=== PATIENT | male | born 2000 | race Caucasian/White ===

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

== ENCOUNTER 2022-03-12 23:52 | Emergency (ER) | payer BC, OTHER ==
--- NOTE | 2022-03-13 | ED Cough/URI ---
General Stated Complaint: CHEST PAIN/TROUBLE BREATHING Source: patient Exam Limitations: no limitations History of Present Illness Date Seen by Provider: March 12, 2022 Time Seen by Provider: 23:57 Initial Comments 21-year-old male with no pertinent past medical history coming in due to 2 days of nonproductive cough, shortness of breath, chest pain. Denies any fever, nausea, vomiting, diarrhea, weakness, numbness, rash, headache, dysuria, or any other concerns. No one around him has been sick that he knows of. Denies any cardiac or pulmonary history personally. Does not smoke. Denies any mopped assist, recent surgery, leg swelling or pain, long travel, or hormone use. Allergies and Home Medications Allergies Coded Allergies: No Known Drug Allergies (Unverified , 09/30/19) Patient Home Medication List Home Medication List Reviewed: Yes Doxycycline Hyclate (Doxycycline Hyclate) 100 Mg Tablet, 100 MG PO BID Prescribed by: ALANA CRAFT on 03/13/22 0110 Ibuprofen (Ibuprofen) 800 Mg Tablet, 800 MG PO Q8H PRN for PAIN Prescribed by: NATTY ASHLEY on 09/30/19 2241 Review of Systems Review of Systems Constitutional: No fever EENTM: No blurred vision Respiratory: cough, short of breath Cardiovascular: chest pain Gastrointestinal: No abdominal pain Genitourinary: no symptoms reported Musculoskeletal: no symptoms reported Skin: no symptoms reported Psychiatric/Neurological: No Symptoms Reported Hematologic/Lymphatic: No Symptoms Reported Immunological/Allergic: no symptoms reported All Other Systems Reviewed Negative Unless Noted: Yes Past Xnnkhba-Hjhhiu-Bsjbkx Hx Patient Social History Tobacco Use?: No Substance use?: No Immunizations Up To Date Tetanus Booster (TDap): Less than 5yrs Seasonal Allergies Seasonal Allergies: No Past Medical History Surgeries: No Respiratory: No Cardiac: No Neurological: No Genitourinary: No Gastrointestinal: No Musculoskeletal: No Endocrine: No HEENT: No Cancer: No Psychosocial: No Integumentary: No Physical Exam Vital Signs - First Documented 03/12/22 23:58 Temp 36.0 Pulse 128 Resp 20 B/P (MAP) 141/92 (108) Pulse Ox 95 O2 Delivery Room Air Capillary Refill : Height: '" Weight: lbs. oz. kg; 33.00 BMI Method: General Appearance: WD/WN, no apparent distress Eyes: Bilateral Eye Normal Inspection HEENT: PERRL/EOMI, normal ENT inspection, pharynx normal Neck: non-tender, full range of motion, supple, normal inspection Respiratory: chest non-tender, lungs clear, normal breath sounds, no respiratory distress, no accessory muscle use Cardiovascular: no edema, no murmur, tachycardia Gastrointestinal: normal bowel sounds, non tender, soft; No distended, No guarding, No rebound Extremities: normal range of motion, non-tender, normal inspection, no pedal edema, no calf tenderness, normal capillary refill Neurologic/Psychiatric: no motor/sensory deficits, alert, normal mood/affect Skin: normal color, warm/dry Lymphatic: no adenopathy Procedures/Interventions Suture Size: 4-0 Progress/Results/Core Measures Suspected Sepsis SIRS Temperature: Pulse: Respiratory Rate: Laboratory Tests 03/13/22 00:07: White Blood Count 8.0 Blood Pressure / Mean: Laboratory Tests 03/13/22 00:07: Creatinine 0.73, INR Comment 0.9, Platelet Count 279, Total Bilirubin 0.4 Results/Orders Lab Results Laboratory Tests Test 03/13/22 00:07 Range/Units White Blood Count 8.0 4.3-11.0 10^3/uL Red Blood Count 5.93 H 4.30-5.52 10^6/uL Hemoglobin 16.4 13.3-17.7 g/dL Hematocrit 48 40-54 % Mean Corpuscular Volume 82 80-99 fL Mean Corpuscular Hemoglobin 28 25-34 pg Mean Corpuscular Hemoglobin Concent 34 32-36 g/dL Red Cell Distribution Width 12.8 10.0-14.5 % Platelet Count 279 130-400 10^3/uL Mean Platelet Volume 9.1 9.0-12.2 fL Immature Granulocyte % (Auto) 0 % Neutrophils (%) (Auto) 49 42-75 % Lymphocytes (%) (Auto) 37 12-44 % Monocytes (%) (Auto) 9 0-12 % Eosinophils (%) (Auto) 5 0-10 % Basophils (%) (Auto) 1 0-10 % Neutrophils # (Auto) 3.9 1.8-7.8 10^3/uL Lymphocytes # (Auto) 2.9 1.0-4.0 10^3/uL Monocytes # (Auto) 0.7 0.0-1.0 10^3/uL Eosinophils # (Auto) 0.4 H 0.0-0.3 10^3/uL Basophils # (Auto) 0.1 0.0-0.1 10^3/uL Immature Granulocyte # (Auto) 0.0 0.0-0.1 10^3/uL Prothrombin Time 12.4 12.2-14.7 SEC INR Comment 0.9 0.8-1.4 Activated Partial Thromboplast Time 26 24-35 SEC D-Dimer 0.22 0.00-0.49 UG/ML Sodium Level 140 135-145 MMOL/L Potassium Level 3.6 3.6-5.0 MMOL/L Chloride Level 100 98-107 MMOL/L Carbon Dioxide Level 28 21-32 MMOL/L Anion Gap 12 5-14 MMOL/L Blood Urea Nitrogen 13 7-18 MG/DL Creatinine 0.73 0.60-1.30 MG/DL Estimat Glomerular Filtration Rate 133 BUN/Creatinine Ratio 18 Glucose Level 102 70-105 MG/DL Calcium Level 9.8 8.5-10.1 MG/DL Corrected Calcium 9.5 8.5-10.1 MG/DL Magnesium Level 2.0 1.6-2.4 MG/DL Total Bilirubin 0.4 0.1-1.0 MG/DL Aspartate Amino Transf (AST/SGOT) 23 5-34 U/L Alanine Aminotransferase (ALT/SGPT) 47 0-55 U/L Alkaline Phosphatase 64 40-136 U/L Troponin I < 0.30 <0.30 NG/ML Total Protein 7.6 6.4-8.2 GM/DL Albumin 4.4 3.2-4.5 GM/DL My Orders Orders - ALANA CRAFT MD Ekg Tracing (03/12/22 23:58) Cbc With Automated Diff (03/13/22 00:04) Magnesium (03/13/22 00:04) Comprehensive Metabolic Panel (03/13/22 00:04) Protime With Inr (03/13/22 00:04) Partial Thromboplastin Time (03/13/22 00:04) O2 (03/13/22 00:04) Monitor-Rhythm Ecg Trace Only (03/13/22 00:04) Ed Iv/Invasive Line Start (03/13/22 00:04) Fibrin Degradation Products (03/13/22 00:04) Troponin I Fs (03/13/22 00:04) Lactated Ringers (Lr 1000 Ml Iv Solution (03/13/22 00:04) Ketorolac Injection (Toradol Injection) (03/13/22 00:15) Chest 1 View Ap/Pa Only (03/13/22 00:12) Doxycycline Hyclate Tablet (Vibramycin T (03/13/22 01:10) Medications Given in ED Current Medications Medications Dose Ordered Sig/Mary Route Start Time Stop Time Status Last Admin Dose Admin Ketorolac Tromethamine 15 mg ONCE ONCE IVP 03/13/22 00:15 03/13/22 00:16 DC 03/13/22 00:10 15 MG Vital Signs/I&O 03/12/22 03/13/22 23:58 01:06 Temp 36.0 Pulse 128 123 Resp 20 20 B/P (MAP) 141/92 (108) 140/83 Pulse Ox 95 96 O2 Delivery Room Air Room Air Capillary Refill : Progress Note : Progress Note 21-year-old male with above history coming in mostly due to cough but now some chest discomfort. ABCs were intact and vitals were stable on presentation although he is tachycardic. An IV was placed and basic labs were obtained and he was given a bolus of IV fluid as well as Toradol. Troponin is negative, D- dimer normal. Chest x-ray with possible faint opacity in the left lower lobe. Oxygen is 99% here even with ambulation. I did a uxmht-wa-kfjc ultrasound and he does not have any pericardial effusion. EKG just sinus tachycardia with no signs of ischemia. Patient is feeling much better on reassessment and says he is near his baseline. Believe he stable for discharge with outpatient follow- up. He was sent home with strict return precautions. Given the productive cough with the questionable chest x-ray and tachycardia, will send in antibiotics for potential developing pneumonia. ECG Initial ECG Impression Date: March 13, 2022 Initial ECG Impression Time: 00:02 Initial ECG Rate: 119 Initial ECG Rhythm: S.Tach Comment Narrow QRS, normal axis, no significant ST changes or T wave abnormalities, LVH by criteria from aVL Departure Impression Primary Impression: Respiratory infection Disposition: HOME, SELF-CARE Condition: Stable Departure-Patient Inst. Decision time for Depature: 01:08 Referrals: ALEXYS VALADEZ MD (PCP/Family) Primary Care Physician Patient Instructions: Bacterial Upper Respiratory Infection, Adult (DC) Add. Discharge Instructions: You will take antibiotics for the next week twice a day. Take ibuprofen and/or Tylenol as needed for fever. Drink plenty of fluids. If you begin having worsening severe shortness of breath, severe chest pain, or any concerns you could always call your doctor or come back to the ER Scripts Doxycycline Hyclate (Doxycycline Hyclate) 100 Mg Tablet 100 MG PO BID for 7 Days, #14 TAB 0 Refills Prov: ALANA CRAFT MD 03/13/22 Work/School Note: Work Release Form Date Seen in the Emergency Department: March 13, 2022 Return to Work: March 14, 2022 Restrictions: No Restrictions ALANA CRAFT MD March 13, 2022 00:00
[2022-03-13] MEDS ORDERED: LACTATED RINGERS 1,000 ML IV STA (00:04)
[2022-03-13] MEDS ORDERED: KETOROLAC 30 MG/ML VIAL IVP ONE (00:15)
[2022-03-13 00:28] LABS: BASOPHILS # (AUTO) 0.1 10^3/uL (0.0-0.1); BASOPHILS % (AUTO) 1 % (0-10); EOSINOPHILS # (AUTO) 0.4 10^3/uL (0.0-0.3); EOSINOPHILS % (AUTO) 5 % (0-10); HEMATOCRIT 48 % (40-54); HEMOGLOBIN 16.4 g/dL (13.3-17.7); LYMPHOCYTES # (AUTO) 2.9 10^3/uL (1.0-4.0); LYMPHOCYTES % (AUTO) 37 % (12-44); MEAN CORPUSCULAR HEMOGLOBIN 28 pg (25-34); MEAN CORPUSCULAR HGB CONC 34 g/dL (32-36); MEAN CORPUSCULAR VOLUME 82 fL (80-99); MEAN PLATELET VOLUME 9.1 fL (9.0-12.2); MONOCYTES # (AUTO) 0.7 10^3/uL (0.0-1.0); MONOCYTES % (AUTO) 9 % (0-12); NEUTROPHILS # (AUTO) 3.9 10^3/uL (1.8-7.8); NEUTROPHILS % (AUTO) 49 % (42-75); PLATELET COUNT 279 10^3/uL (130-400)
[2022-03-13 00:38] LABS: INR 0.9 (0.8-1.4); PROTHROMBIN TIME PATIENT 12.4 SEC (12.2-14.7)
[2022-03-13 00:49] LABS: BILIRUBIN,TOTAL 0.4 MG/DL (0.1-1.0); CALCIUM 9.8 MG/DL (8.5-10.1); CREATININE SERUM 0.73 MG/DL (0.60-1.30); POTASSIUM 3.6 MMOL/L (3.6-5.0)
[2022-03-13 00:50] LABS: ALBUMIN 4.4 GM/DL (3.2-4.5); TOTAL PROTEIN 7.6 GM/DL (6.4-8.2)
[2022-03-13 01:06] VITALS: BP 140/83
[2022-03-13] MEDS ORDERED: DOXYCYCLINE 100 MG (VIBRAMYCIN) TABLET PO STA (01:10)
[2022-03-13] MEDS ORDERED: DOXY100T2 PO (01:10)
--- NOTE | 2022-03-13 07:00 | Diagnostic Imaging Report ---
Indication: Chest pain. Findings: Single view of the chest demonstrates clear lungs bilaterally. The heart is normal. There is no pneumothorax. Osseous structures are normal. Impression: Negative chest. Dictated by: Dictated on workstation # [id number]
== END 2022-03-13 01:20 | disposition home or self-care (01) ==
LOC: EDUNIT# 23:52 → ER FS 23:56
DX: J98.8 Other specified respiratory disorders (principal)
CPT/HCPCS: 36415; 71045; 80053; 83735; 84484; 85025; 85379; 85610; 85730; 93005; 93041

== ENCOUNTER 2022-04-04 18:41 | Emergency (ER) | payer BC ==
[~2022-04-04] VITALS: Ht 177.8 cm; Wt 169.6 kg
[~2022-04-04 18:41] MED LIST changes: +DOXY100T2 PO
[2022-04-04] MEDS ORDERED: NS IV 1000 ML 1,000 ML IV STA ×2 (19:03→20:04)
--- NOTE | 2022-04-04 19:09 | ED General ---
General Chief Complaint: Dizziness/Syncope Stated Complaint: DIZZINESS Source of Information: Patient, Spouse History of Present Illness Date Seen by Provider: Apr 04, 2022 Time Seen by Provider: 18:46 Initial Comments 21-year-old male presenting with complaints of dizziness and blurred vision intermittently for the last 2 weeks. He states that it just comes on randomly and there is no specific trigger. He currently feels fine but earlier today he had some blurred vision and dizziness while he was driving. He does work for [employer] and states that sometimes the houses he is in are hot even if they have the air conditioning on for the house. He denies getting more dizzy with turning his head. He does not have any problems with looking around. When he does have the dizziness he feels like the room is spinning. He had a chipped tooth about a month ago and had a crown put on it yesterday. After that he did have nausea vomiting last night but has been eating and drinking fine today. He states he does drink several bottles of water as well as 1 DrKandis Pelletier today. He denies any pain or burning with urination. He has had no fever, chills, headache, cough, abdominal pain, chest pain, numbness or tingling in his arms or legs. He does take Effexor and trazodone for depression and insomnia. Timing/Duration: Intermittent (Over the last 2 weeks or so) Severity: Moderate Modifying Factors: improves with Other (Nothing specific triggers or helps when he has the episodes) Associated Systoms: No Chest Pain, No Cough, No Diaphoresis, No Fever/Chills, No Headaches, No Loss of Appetite, No Malaise, No Nausea/Vomiting, No Rash, No Seizure, No Shortness of Air, No Syncope, No Weakness Allergies and Home Medications Allergies Coded Allergies: No Known Drug Allergies (Unverified , 09/30/19) Patient Home Medication List Home Medication List Reviewed: Yes Doxycycline Hyclate (Doxycycline Hyclate) 100 Mg Tablet, 100 MG PO BID Prescribed by: ALANA CRAFT on 03/13/22 0110 Ibuprofen (Ibuprofen) 800 Mg Tablet, 800 MG PO Q8H PRN for PAIN Prescribed by: NATTY ASHLEY on 09/30/19 7338 Review of Systems Review of Systems Constitutional: No chills; dizziness; No fever EENTM: blurred vision (Intermittent), dental problems (Had a chipped tooth that was capped yesterday); No ear discharge, No ear pain, No epistaxis, No nose congestion Respiratory: No cough, No hemoptysis, No phlegm, No short of breath, No stridor, No wheezing Cardiovascular: No chest pain, No edema, No palpitations Gastrointestinal: No abdominal pain; nausea, vomiting (Last night) Genitourinary: No decreased output, No dysuria, No frequency, No hematuria Musculoskeletal: no symptoms reported Skin: No rash Psychiatric/Neurological: Denies Headache, Denies Numbness, Denies Paresthesia, Denies Tremors, Denies Weakness Hematologic/Lymphatic: Denies Blood Clots Past Tuskaxl-Sdcprd-Zkahxp Hx Patient Social History Tobacco Use?: Yes Tobacco type used: Cigarettes Smoking Status: Current Everyday Smoker Substance use?: No Alcohol Use?: Yes Alcohol type: Beer Alcohol Frequency: Once in a while Pt feels they are or have been: No Immunizations Up To Date Tetanus Booster (TDap): Less than 5yrs Seasonal Allergies Seasonal Allergies: No Past Medical History Surgery/Hospitalization HX: Depression, insomnia Surgeries: No Respiratory: No Cardiac: No Neurological: No Genitourinary: No Gastrointestinal: No Musculoskeletal: No Endocrine: No HEENT: No Cancer: No Psychosocial: No Integumentary: No Physical Exam Vital Signs Vital Signs - First Documented 04/04/22 18:49 Temp 36.8 Pulse 124 Resp 20 B/P (MAP) 152/96 (114) Pulse Ox 96 O2 Delivery Room Air Capillary Refill : Height, Weight, BMI Height: '" Weight: lbs. oz. kg; 33.00 BMI Method: General Appearance: No Apparent Distress, Obese HEENT: PERRL/EOMI, TMs Normal, Normal ENT Inspection, Pharynx Normal, Moist Mucous Membranes; No Photophobia; Other (Negative CSF otorrhea, negative CSF rhinorrhea, no gum swelling around tooth. Negative tellez sign, negative raccoon sign.) Neck: Full Range of Motion, Normal Inspection, Non Tender, Supple Respiratory: Chest Non Tender, Lungs Clear, Normal Breath Sounds, No Accessory Muscle Use, No Respiratory Distress Cardiovascular: Normal Peripheral Pulses, Tachycardia Gastrointestinal: Normal Bowel Sounds, No Pulsatile Mass, Non Tender, Soft Rectal: Deferred Back: No CVA Tenderness, No Vertebral Tenderness Extremity: Normal Capillary Refill, Normal Inspection, Normal Range of Motion, Non Tender, No Calf Tenderness, No Pedal Edema Neurologic/Psychiatric: Alert, Oriented x3, No Motor/Sensory Deficits, Normal 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, 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 Norm as Tested Skin: Normal Color, Warm/Dry; No Rash Procedures/Interventions Suture Size: 4-0 Progress/Results/Core Measures Suspected Sepsis SIRS Temperature: Pulse: Respiratory Rate: Laboratory Tests 04/04/22 19:23: White Blood Count 8.7 Blood Pressure / Mean: Laboratory Tests 04/04/22 19:23: Creatinine 0.71, Platelet Count 239, Total Bilirubin 0.3 Results/Orders Lab Results Laboratory Tests Test 04/04/22 19:23 Range/Units White Blood Count 8.7 4.3-11.0 10^3/uL Red Blood Count 5.48 4.30-5.52 10^6/uL Hemoglobin 15.1 13.3-17.7 g/dL Hematocrit 45 40-54 % Mean Corpuscular Volume 82 80-99 fL Mean Corpuscular Hemoglobin 28 25-34 pg Mean Corpuscular Hemoglobin Concent 34 32-36 g/dL Red Cell Distribution Width 13.2 10.0-14.5 % Platelet Count 239 130-400 10^3/uL Mean Platelet Volume 9.1 9.0-12.2 fL Immature Granulocyte % (Auto) 1 % Neutrophils (%) (Auto) 65 42-75 % Lymphocytes (%) (Auto) 24 12-44 % Monocytes (%) (Auto) 8 0-12 % Eosinophils (%) (Auto) 3 0-10 % Basophils (%) (Auto) 1 0-10 % Neutrophils # (Auto) 5.6 1.8-7.8 10^3/uL Lymphocytes # (Auto) 2.1 1.0-4.0 10^3/uL Monocytes # (Auto) 0.7 0.0-1.0 10^3/uL Eosinophils # (Auto) 0.3 0.0-0.3 10^3/uL Basophils # (Auto) 0.1 0.0-0.1 10^3/uL Immature Granulocyte # (Auto) 0.0 0.0-0.1 10^3/uL Urine Color YELLOW Urine Clarity CLEAR Urine pH 7.0 5-9 Urine Specific [place] 1.020 1.016-1.022 Urine Protein NEGATIVE NEGATIVE Urine Glucose (UA) NEGATIVE NEGATIVE Urine Ketones NEGATIVE NEGATIVE Urine Nitrite NEGATIVE NEGATIVE Urine Bilirubin NEGATIVE NEGATIVE Urine Urobilinogen 1.0 < = 1.0 MG/DL Urine Leukocyte Esterase NEGATIVE NEGATIVE Urine RBC (Auto) NEGATIVE NEGATIVE Urine RBC NONE /HPF Urine WBC 10-25 H /HPF Urine Squamous Epithelial Cells 25-50 H /HPF Urine Crystals NONE /LPF Urine Bacteria FEW H /HPF Urine Casts NONE /LPF Urine Mucus LARGE H /LPF Urine Culture Indicated NO Sodium Level 139 135-145 MMOL/L Potassium Level 3.6 3.6-5.0 MMOL/L Chloride Level 102 98-107 MMOL/L Carbon Dioxide Level 27 21-32 MMOL/L Anion Gap 10 5-14 MMOL/L Blood Urea Nitrogen 14 7-18 MG/DL Creatinine 0.71 0.60-1.30 MG/DL Estimat Glomerular Filtration Rate 134 BUN/Creatinine Ratio 20 Glucose Level 118 H 70-105 MG/DL Calcium Level 8.9 8.5-10.1 MG/DL Corrected Calcium 9.0 8.5-10.1 MG/DL Total Bilirubin 0.3 0.1-1.0 MG/DL Aspartate Amino Transf (AST/SGOT) 20 5-34 U/L Alanine Aminotransferase (ALT/SGPT) 33 0-55 U/L Alkaline Phosphatase 56 40-136 U/L Total Protein 6.8 6.4-8.2 GM/DL Albumin 3.9 3.2-4.5 GM/DL Lipase 18 8-78 U/L My Orders Orders - FARNAZ ODOM MD Comprehensive Metabolic Panel (04/04/22 19:03) Lipase (04/04/22 19:03) Ua Culture If Indicated (04/04/22 19:03) Ed Iv/Invasive Line Start (04/04/22 19:03) Cbc With Automated Diff (04/04/22 19:03) Ns Iv 1000 Ml (Sodium Chloride 0.9%) (04/04/22 19:03) Ns Iv 1000 Ml (Sodium Chloride 0.9%) (04/04/22 20:04) Vital Signs/I&O 04/04/22 18:49 Temp 36.8 Pulse 124 Resp 20 B/P (MAP) 152/96 (114) Pulse Ox 96 O2 Delivery Room Air Capillary Refill : Progress Note #1: Progress Note Check basic labs and urinalysis. Provided his electrolytes look okay will try IV fluids for his dizziness and tachycardia. Differential diagnosis includes dehydration, dental abscess, arrhythmia, electrolyte imbalance Progress Note #2: Progress Note CBC and chemistry appear stable without acute significant abnormality. He has mild elevation of his glucose. He did state that he had drank a Dr. pepper shortly before coming to the emergency department. His heart rate has slightly improved with the liter of normal saline for hydration. We will repeat another normal saline 1 L IV fluid bolus as well as encourage oral hydration to help him provide a urine specimen. Progress Note #3: Progress Note UA had mild elevation of the specific gravity to 1.020. He has had no signs of infection. He continues to improve and feel better as he is getting fluids. He has had no dizzy spells here in the emergency department. His heart rate is imp roving with hydration. A lot of his symptoms may be secondary to dehydration and not eating a balanced diet. He states that he works 60 to 70 hours a week and feels that he is overdoing things. Counseled on better hydration. Counseled on follow-up and return precautions. Advised to check with clinic if not improving. Also given information about meclizine or Antivert that he can take [id number] if needed for symptom control Departure Impression Primary Impression: Dizziness Additional Impression: Dehydration Disposition: 01 HOME, SELF-CARE Condition: Improved Departure-Patient Inst. Decision time for Depature: 20:33 Referrals: ALEXYS VALADEZ MD (PCP/Family) Primary Care Physician Patient Instructions: Dehydration, Adult ED, Dizziness, Adult ED Add. Discharge Instructions: Your blood work and urine look okay and did not show any acute problems to explain your dizziness. It does look like you might be a little dehydrated which could certainly cause some dizziness. Try to increase your water and electrolyte intake to help with your hydration. Try to get your urine is light-colored as possible. The darker colored or more yellow or orange-colored urine indicates that you are dry and need extra fluid. If the dizziness persists then check with Dr. Valadez in clinic about your symptoms. You could also try taking Meclizine or Antivert over the counter. This is for dizziness and travel sickness. You would take 25 mg or 1 pill every 8 hours as needed for dizziness. All discharge instructions reviewed with patient and/or family. Voiced understanding. ENYART,FARNAZ E MD Apr 04, 2022 19:09
[2022-04-04 19:27] LABS: BASOPHILS # (AUTO) 0.1 10^3/uL (0.0-0.1); BASOPHILS % (AUTO) 1 % (0-10); EOSINOPHILS # (AUTO) 0.3 10^3/uL (0.0-0.3); EOSINOPHILS % (AUTO) 3 % (0-10); HEMATOCRIT 45 % (40-54); HEMOGLOBIN 15.1 g/dL (13.3-17.7); LYMPHOCYTES # (AUTO) 2.1 10^3/uL (1.0-4.0); LYMPHOCYTES % (AUTO) 24 % (12-44); MEAN CORPUSCULAR HEMOGLOBIN 28 pg (25-34); MEAN CORPUSCULAR HGB CONC 34 g/dL (32-36); MEAN CORPUSCULAR VOLUME 82 fL (80-99); MEAN PLATELET VOLUME 9.1 fL (9.0-12.2); MONOCYTES # (AUTO) 0.7 10^3/uL (0.0-1.0); MONOCYTES % (AUTO) 8 % (0-12); NEUTROPHILS # (AUTO) 5.6 10^3/uL (1.8-7.8); NEUTROPHILS % (AUTO) 65 % (42-75); PLATELET COUNT 239 10^3/uL (130-400); WHITE BLOOD COUNT 8.7 10^3/uL (4.3-11.0)
[2022-04-04 19:46] LABS: CREATININE SERUM 0.71 MG/DL (0.60-1.30); POTASSIUM 3.6 MMOL/L (3.6-5.0)
[2022-04-04 19:47] LABS: ALBUMIN 3.9 GM/DL (3.2-4.5); BILIRUBIN,TOTAL 0.3 MG/DL (0.1-1.0); CALCIUM 8.9 MG/DL (8.5-10.1); TOTAL PROTEIN 6.8 GM/DL (6.4-8.2)
[2022-04-04 20:19] LABS: BILIRUBIN,URINE NEGATIVE (NEGATIVE); CLARITY,URINE CLEAR; COLOR,URINE YELLOW; GLUCOSE, URINE (UA) NEGATIVE (NEGATIVE); KETONES,URINE NEGATIVE (NEGATIVE); LEUKOCYTE ESTERASE ,URINE NEGATIVE (NEGATIVE); NITRITE,URINE NEGATIVE (NEGATIVE); PROTEIN,URINE NEGATIVE (NEGATIVE)
[2022-04-04 20:23] LABS: BACTERIA,URINE FEW /HPF; SQUAMOUS EPITHELIAL CELL,UR 25-50 /HPF
[2022-04-04 20:48] VITALS: BP 135/110
== END 2022-04-04 20:48 | disposition home or self-care (01) ==
LOC: EDUNIT# 18:41 → ER FS 18:44
DX: R42 Dizziness and giddiness (principal); E86.0 Dehydration; R73.9 Hyperglycemia, unspecified; F32.A Depression, unspecified; G47.00 Insomnia, unspecified; F17.210 Nicotine dependence, cigarettes, uncomplicated; Z79.899 Other long term (current) drug therapy
CPT/HCPCS: 36415; 80053; 81000; 83690; 85025

== ENCOUNTER 2022-09-30 00:31 | Emergency (ER) | payer BC ==
--- NOTE | 2022-09-30 00:40 | ED Cough/URI ---
General Chief Complaint: Fever-Adult/Adol Stated Complaint: SOB Source: patient, EMS Exam Limitations: no limitations History of Present Illness Date Seen by Provider: Sep 30, 2022 Time Seen by Provider: 00:33 Initial Comments 22-year-old male with no pertinent past medical history coming in via EMS from his work due to fever, cough, shortness of breath. The patient states he had COVID 2 weeks ago, got better about a week ago. Has had continued dry cough. Developed a fever yesterday. At work today was 103. Took Tylenol before coming to the ER. Was diagnosed with bronchitis by his PCP yesterday as well. Prescription was written for an inhaler, however he has not filled it yet. Otherwise denying any chest pain, abdominal pain, nausea, vomiting, diarrhea, weakness, numbness, rash, headache, neck stiffness, or any other concerns. EMS reports giving him a DuoNeb. They report his heart rate was around 140 with his fever. Allergies and Home Medications Allergies Coded Allergies: No Known Drug Allergies (Unverified , 09/30/19) Patient Home Medication List Home Medication List Reviewed: Yes Doxycycline Hyclate (Doxycycline Hyclate) 100 Mg Tablet, 100 MG PO BID Prescribed by: ALANA CRAFT on 03/13/22 0110 Doxycycline Hyclate (Doxycycline Hyclate) 100 Mg Tablet, 100 MG PO BID Prescribed by: ALANA CRAFT on 09/30/22 0136 Ibuprofen (Ibuprofen) 800 Mg Tablet, 800 MG PO Q8H PRN for PAIN Prescribed by: NATTY ASHLEY on 09/30/19 2241 Review of Systems Review of Systems Constitutional: fever EENTM: No blurred vision Respiratory: cough, short of breath Cardiovascular: No chest pain Gastrointestinal: no symptoms reported Genitourinary: no symptoms reported Musculoskeletal: no symptoms reported Skin: no symptoms reported Psychiatric/Neurological: No Symptoms Reported Hematologic/Lymphatic: No Symptoms Reported Immunological/Allergic: no symptoms reported All Other Systems Reviewed Negative Unless Noted: Yes Past Sybygds-Xtkqpy-Eftrue Hx Patient Social History Tobacco Use?: No Smoking Status: Former Smoker Immunizations Up To Date Tetanus Booster (TDap): Less than 5yrs Seasonal Allergies Seasonal Allergies: No Past Medical History Surgery/Hospitalization HX: Depression, insomnia Surgeries: No Respiratory: No Cardiac: No Neurological: No Genitourinary: No Gastrointestinal: No Musculoskeletal: No Endocrine: No HEENT: No Cancer: No Psychosocial: No Integumentary: No Physical Exam Vital Signs - First Documented 09/30/22 00:31 Temp 38.9 Pulse 140 Resp 24 B/P (MAP) 147/93 (111) Pulse Ox 96 O2 Delivery Room Air Capillary Refill : Height: '" Weight: lbs. oz. kg; 53.00 BMI Method: General Appearance: WD/WN, no apparent distress Eyes: Bilateral Eye Normal Inspection HEENT: PERRL/EOMI, normal ENT inspection, pharynx normal Neck: non-tender, full range of motion, supple, normal inspection Respiratory: chest non-tender, lungs clear, normal breath sounds, no respiratory distress Cardiovascular: no edema, no murmur, tachycardia Gastrointestinal: normal bowel sounds, non tender, soft; No distended, No guarding, No rebound Extremities: normal range of motion, non-tender, normal inspection, no pedal edema, no calf tenderness, normal capillary refill Neurologic/Psychiatric: no motor/sensory deficits, alert, normal mood/affect Skin: normal color, warm/dry Lymphatic: no adenopathy Procedures/Interventions Suture Size: 4-0 Progress/Results/Core Measures Suspected Sepsis SIRS Temperature: Pulse: Respiratory Rate: Laboratory Tests 09/30/22 00:33: White Blood Count 6.7 Blood Pressure / Mean: Laboratory Tests 09/30/22 00:33: Creatinine 0.65, Platelet Count 239, Total Bilirubin 0.5 Results/Orders Lab Results Laboratory Tests Test 09/30/22 00:33 Range/Units White Blood Count 6.7 4.3-11.0 10^3/uL Red Blood Count 5.69 H 4.30-5.52 10^6/uL Hemoglobin 15.7 13.3-17.7 g/dL Hematocrit 46 40-54 % Mean Corpuscular Volume 81 80-99 fL Mean Corpuscular Hemoglobin 28 25-34 pg Mean Corpuscular Hemoglobin Concent 34 32-36 g/dL Red Cell Distribution Width 13.1 10.0-14.5 % Platelet Count 239 130-400 10^3/uL Mean Platelet Volume 10.4 9.0-12.2 fL Immature Granulocyte % (Auto) 0 % Neutrophils (%) (Auto) 67 42-75 % Lymphocytes (%) (Auto) 16 12-44 % Monocytes (%) (Auto) 12 0-12 % Eosinophils (%) (Auto) 4 0-10 % Basophils (%) (Auto) 1 0-10 % Neutrophils # (Auto) 4.5 1.8-7.8 10^3/uL Lymphocytes # (Auto) 1.0 1.0-4.0 10^3/uL Monocytes # (Auto) 0.8 0.0-1.0 10^3/uL Eosinophils # (Auto) 0.3 0.0-0.3 10^3/uL Basophils # (Auto) 0.0 0.0-0.1 10^3/uL Immature Granulocyte # (Auto) 0.0 0.0-0.1 10^3/uL Sodium Level 139 135-145 MMOL/L Potassium Level 3.8 3.6-5.0 MMOL/L Chloride Level 102 98-107 MMOL/L Carbon Dioxide Level 25 21-32 MMOL/L Anion Gap 12 5-14 MMOL/L Blood Urea Nitrogen 12 7-18 MG/DL Creatinine 0.65 0.60-1.30 MG/DL Estimat Glomerular Filtration Rate 137 BUN/Creatinine Ratio 18 Glucose Level 122 H 70-105 MG/DL Calcium Level 9.5 8.5-10.1 MG/DL Corrected Calcium 9.3 8.5-10.1 MG/DL Total Bilirubin 0.5 0.1-1.0 MG/DL Aspartate Amino Transf (AST/SGOT) 31 5-34 U/L Alanine Aminotransferase (ALT/SGPT) 53 0-55 U/L Alkaline Phosphatase 57 40-136 U/L Total Protein 7.6 6.4-8.2 GM/DL Albumin 4.2 3.2-4.5 GM/DL Influenza Type A (RT-PCR) Detected H Not Detecte Influenza Type B (RT-PCR) Not Detected Not Detecte My Orders Orders - ALANA CRAFT MD Cbc With Automated Diff (09/30/22 00:37) Comprehensive Metabolic Panel (09/30/22 00:37) Influenza A And B By Pcr (09/30/22 00:37) Chest 1 View Ap/Pa Only (09/30/22 00:37) Ed Iv/Invasive Line Start (09/30/22 00:37) Ns Iv 1000 Ml (Sodium Chloride 0.9%) (09/30/22 00:45) Ibuprofen Tablet (Motrin Tablet) (09/30/22 00:45) Medications Given in ED Current Medications Medications Dose Ordered Sig/Mary Route Start Time Stop Time Status Last Admin Dose Admin Ibuprofen 600 mg ONCE ONCE PO 09/30/22 00:45 09/30/22 00:46 DC 09/30/22 00:45 600 MG Vital Signs/I&O 09/30/22 09/30/22 00:31 01:38 Temp 38.9 37.2 Pulse 140 124 Resp 24 18 B/P (MAP) 147/93 (111) 145/83 Pulse Ox 96 94 O2 Delivery Room Air Room Air Capillary Refill : Progress Note : Progress Note 22-year-old male with above history coming in due to fever, cough, body aches. Patient was tachycardic and febrile on presentation. Heart rate came down with fluids and when his temperature came down. Chest x-ray with some patchiness, but given he just had COVID, and his flu a positive today, likely is viral. We will start him on antibiotics in case there is a bacterial component as well. I believe he stable for discharge with outpatient follow-up. He was sent home with strict return precautions Diagnostic Imaging Diagonstic Imaging: Xray Plain Films/CT/US/NM/MRI: chest Departure Impression Primary Impression: Influenza A Disposition: 01 HOME, SELF-CARE Condition: Stable Departure-Patient Inst. Decision time for Depature: 01:35 Referrals: ALEXYS VALADEZ MD (PCP/Family) Primary Care Physician Patient Instructions: Flu, Adult ED Add. Discharge Instructions: You do have influenza A now. People have been having fever for 3 to 4 days, cough can be prolonged. We will start you on an antibiotic in case this develops into pneumonia which would cover you. Scripts Doxycycline Hyclate (Doxycycline Hyclate) 100 Mg Tablet 100 MG PO BID for 7 Days, #14 TAB 0 Refills Prov: ALANA CRAFT MD 09/30/22 Work/School Note: Work Release Form Date Seen in the Emergency Department: Sep 30, 2022 Return to Work: Oct 02, 2022 Restrictions: Return-No Vomiting(24hrs) ALANA CRAFT MD Sep 30, 2022 00:40
[2022-09-30] MEDS ORDERED: IBUPROFEN 600 MG (MOTRIN) TAB PO ONE (00:45)
[2022-09-30] MEDS ORDERED: NS IV 1000 ML 1,000 ML IV SCH (00:45)
[2022-09-30 01:07] LABS: BASOPHILS % (AUTO) 1 % (0-10); EOSINOPHILS # (AUTO) 0.3 10^3/uL (0.0-0.3); EOSINOPHILS % (AUTO) 4 % (0-10); HEMATOCRIT 46 % (40-54); HEMOGLOBIN 15.7 g/dL (13.3-17.7); LYMPHOCYTES % (AUTO) 16 % (12-44); MEAN CORPUSCULAR HEMOGLOBIN 28 pg (25-34); MEAN CORPUSCULAR HGB CONC 34 g/dL (32-36); MEAN CORPUSCULAR VOLUME 81 fL (80-99); MEAN PLATELET VOLUME 10.4 fL (9.0-12.2); MONOCYTES # (AUTO) 0.8 10^3/uL (0.0-1.0); MONOCYTES % (AUTO) 12 % (0-12); NEUTROPHILS # (AUTO) 4.5 10^3/uL (1.8-7.8); NEUTROPHILS % (AUTO) 67 % (42-75); PLATELET COUNT 239 10^3/uL (130-400); WHITE BLOOD COUNT 6.7 10^3/uL (4.3-11.0)
[2022-09-30 01:36] LABS: BILIRUBIN,TOTAL 0.5 MG/DL (0.1-1.0); CALCIUM 9.5 MG/DL (8.5-10.1); CREATININE SERUM 0.65 MG/DL (0.60-1.30); POTASSIUM 3.8 MMOL/L (3.6-5.0)
[2022-09-30] MEDS ORDERED: DOXY100T2 PO ×2 (01:36→01:57)
[2022-09-30 01:37] LABS: ALBUMIN 4.2 GM/DL (3.2-4.5); TOTAL PROTEIN 7.6 GM/DL (6.4-8.2)
[2022-09-30 01:38] VITALS: BP 145/83
--- NOTE | 2022-09-30 07:55 | Diagnostic Imaging Report ---
Clinical indications: Patient with shortness breath and fever. EXAM: Portable chest x-ray upright view. COMPARISON: Chest x-ray dated 03/13/2022. FINDINGS: Lungs/pleura: Lungs are clear. There is no pneumothorax. There is no pleural effusion. Mediastinum: Unremarkable. Pulmonary vasculature: Unremarkable. Heart: Unremarkable. Bones/extrathoracic soft tissue: Unremarkable. IMPRESSION: There is no radiographic evidence of acute cardiopulmonary process. Dictated by: Dictated on workstation # [id number]
== END 2022-09-30 01:56 | disposition home or self-care (01) ==
LOC: EDUNIT# 00:31 → ER FS 00:32
DX: J10.1 Influenza due to other identified influenza virus with other respiratory manifestations (principal); Z86.16 Personal history of COVID-19; Z87.891 Personal history of nicotine dependence; Z28.310 Unvaccinated for COVID-19
CPT/HCPCS: 36415; 71045; 80053; 85025; 87636

== ENCOUNTER 2023-06-21 20:15 | Emergency (ER) | payer BC ==
[~2023-06-21] VITALS: Ht 180.3 cm; Wt 164.2 kg
[2023-06-21 20:22] VITALS: BP 130/80
--- NOTE | 2023-06-21 20:30 | ED General ---
General Stated Complaint: R SIDE BOIL,CAUSING PT DIFFICULTY WALKING Source of Information: Patient History of Present Illness Date Seen by Provider: Jun 21, 2023 Time Seen by Provider: 20:27 Initial Comments 23-year-old male presenting with complaints of 1 week of increasing pain and redness to his right side of the abdomen. He has had previous boils on his back that have drained and had to be cut into at times. They thought that this was another 1 of those boils just on the side of his abdomen. He had been trying to push on it to see if it would pop but cannot get anything to drain. It has become more inflamed and painful especially when he is moving or when he is getting in and out of the car. He denies having fever or chills. He denies a history of MRSA. He has not tried taking any Tylenol or ibuprofen for the pain. Timing/Duration: 1 Week Severity: Moderate Modifying Factors: worse with Movement Associated Systoms: No Chest Pain, No Cough, No Diaphoresis, No Fever/Chills, No Headaches, No Loss of Appetite, No Malaise, No Nausea/Vomiting, No Rash, No Seizure, No Shortness of Air, No Syncope, No Weakness Allergies and Home Medications Allergies Coded Allergies: No Known Drug Allergies (Unverified , 09/30/19) Patient Home Medication List Home Medication List Reviewed: Yes Cephalexin (Cephalexin) 500 Mg Capsule, 500 MG PO QID Prescribed by: FARNAZ ODOM on 06/21/232050 Doxycycline Hyclate (Doxycycline Hyclate) 100 Mg Tablet, 100 MG PO BID Prescribed by: ALANA CRAFT on 03/13/22 0110 Doxycycline Hyclate (Doxycycline Hyclate) 100 Mg Tablet, 100 MG PO BID Prescribed by: ALANA CRAFT on 09/30/22 0157 Ibuprofen (Ibuprofen) 800 Mg Tablet, 800 MG PO Q8H PRN for PAIN Prescribed by: NATTY ASHLEY on 09/30/19 2241 Review of Systems Review of Systems Constitutional: No chills, No fever EENTM: no symptoms reported Respiratory: no symptoms reported Cardiovascular: no symptoms reported Gastrointestinal: see HPI Genitourinary: no symptoms reported Musculoskeletal: no symptoms reported Skin: see HPI, change in color (Erythematous indurated area to the right lateral abdominal wall) Psychiatric/Neurological: No Symptoms Reported Past Alznhqa-Bcizpo-Lgsscc Hx Immunizations Up To Date Tetanus Booster (TDap): Less than 5yrs Seasonal Allergies Seasonal Allergies: No Past Medical History Surgery/Hospitalization HX: Depression, insomnia Surgeries: No Respiratory: No Cardiac: No Neurological: No Genitourinary: No Gastrointestinal: No Musculoskeletal: No Endocrine: No HEENT: No Cancer: No Psychosocial: No Integumentary: No Physical Exam Vital Signs Capillary Refill : Height, Weight, BMI Height: '" Weight: lbs. oz. 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 Norm as Tested Skin: Warm/Dry, Erythema (Erythematous area to the right lower lateral abdominal wall with induration but no fluctuance or drainage) Procedures/Interventions Suture Size: 4-0 Progress/Results/Core Measures Suspected Sepsis SIRS Temperature: Pulse: Respiratory Rate: Blood Pressure / Mean: Results/Orders My Orders Orders - FARNAZ ODOM MD Ceftriaxone Iv/Im (Ceftriaxone Iv/Im) (06/21/23 20:49) Lidocaine 1% Inj 20 Ml (Xylocaine 1% Inj (06/21/23 21:00) Vital Signs/I&O Capillary Refill : Progress Note : Progress Note Counseled patient that this appears to be more of a cellulitis and induration of the skin rather than an abscess. I did not feel any fluctuance to indicate an area to be able to drain. Ordered Rocephin 1 g IM here in the ED and continue with cephalexin 500 mg p.o. 4 times daily x10 days for cellulitis. Advised he could try applying heat during the day to help get the area to come to ahead and drain and he could try using ice when he is going to bed or if it is really painful and inflamed. Try taking at least ibuprofen up to 800 mg every 8 hours as needed for pain and inflammation. Check back with the clinic if not improving or if he is having worsening symptoms after 48 hours of antibiotics such as fever over 101 Fahrenheit or redness streaking up his side then he could return as he may need IV antibiotics to help clear the infection. Departure Impression Primary Impression: Cellulitis of right abdominal wall Disposition: 01 HOME, SELF-CARE Condition: Stable Departure-Patient Inst. Decision time for Depature: 20:50 Referrals: ALEXYS VALADEZ MD (PCP/Family) Primary Care Physician Patient Instructions: Cellulitis (Skin Infection), Adult ED Add. Discharge Instructions: Try applying heat for 10 to 15 minutes every few hours while awake to try and help increase blood flow and antibiotics to the area of infection. If this area is going to come to ahead and have a pus pocket to drain this would also help to speed that process up. You could try applying ice for 10 to 15 minutes to help numb the area and especially before bed or if it is feeling really inflamed and painful. Take the full course of antibiotics to treat for infection and help the cellulitis/skin infection to heal. For pain and inflammation you could try taking ibuprofen [id number] 200 mg pills and you could take 4 of those or 800 mg every 8 hours as needed for pain and inflammation. If the area is getting worse or spreading up your side and you are having fevers over 101 Fahrenheit then you should be seen again as you may need IV antibiotics. The area of redness and infection will worsen in the next 24 to 48 hours until the antibiotics start kicking in where it would treat the infection and then the redness and pain and swelling will start to improve. Scripts Cephalexin (Cephalexin) 500 Mg Capsule 500 MG PO QID for Cellulitis for 10 Days, #40 CAP 0 Refills Prov: FARNAZ ODOM MD 06/21/23 FARNAZ ODOM MD Jun 21, 2023 20:30
[2023-06-21] MEDS ORDERED: cefTRIAXone 1,000 MG VIAL IV/IM IM STA (20:49)
[2023-06-21] MEDS ORDERED: CEPH500C PO (20:51)
[2023-06-21] MEDS ORDERED: LIDOCAINE 1% INJ 20 ML VIAL INJ ONE (21:00)
== END 2023-06-21 21:08 | disposition home or self-care (01) ==
LOC: EDUNIT# 20:15 → ER FS 20:17
DX: L03.311 Cellulitis of abdominal wall (principal); E66.9 Obesity, unspecified; Z68.43 Body mass index [BMI] 50.0-59.9, adult; Z28.310 Unvaccinated for COVID-19
CPT/HCPCS: 99284